=== PATIENT | male | born 1970 ===

== ENCOUNTER 2017-05-01 16:00 | Emergency (ER) | payer BC ==
[2017-05-01 16:19] VITALS: BP 126/93
--- NOTE | 2017-05-01 16:47 | UC ---
UC General HPI - HPI Summary HPI Summary: Patient presents with an unremarkable past medical history. He presents today with 5 day onset complaints of generalized body aches, fatigue and malaise, persistent coughing. He states that he coughs so hard at times that he get nauseous, and almost vomits. He states that each day he is not getting better. He had to call into work today because he is still sick. He also reports toady he has had diarrhea. - History of Current Complaint Chief Complaint: UCRespiratory Stated Complaint: COUGH,CONGESTION,CHILLS Time Seen by Provider: 05/01/17 16:31 Hx Obtained From: Patient Onset/Duration: Sudden Onset Onset Severity: Moderate Current Severity: Moderate Pain Intensity: 7 Associated Signs & Symptoms: Positive: Cough, Fever, Nausea - Allergy/Home Medications Allergies/Adverse Reactions: Allergies Allergy/AdvReac Type Severity Reaction Status Date / Time No Known Allergies Allergy Verified 05/01/17 16:19 PMH/Surg Hx/FS Hx/Imm Hx Previously Healthy: Yes - Surgical History Surgical History: None - Family History Known Family History: Positive: None - Social History Occupation: Employed Full-time Lives: With Family Alcohol Use: None Substance Use Type: None Smoking Status (MU): Heavy Every Day Tobacco Smoker Amount Used/How Often: 1/2 PPD Review of Systems Constitutional: Fever, Chills, Fatigue Skin: Negative Eyes: Negative Respiratory: Cough Cardiovascular: Negative Gastrointestinal: Negative Genitourinary: Negative Motor: Negative Neurovascular: Negative Musculoskeletal: Negative Neurological: Negative Psychological: Negative Is Patient Immunocompromised?: No All Other Systems Reviewed And Are Negative: Yes Physical Exam Triage Information Reviewed: Yes Appearance: Ill-Appearing Vital Signs: Initial Vital Signs Temp 99.0 F 05/01/17 16:16 Pulse 77 05/01/17 16:16 Resp 12 05/01/17 16:16 BP 126/93 05/01/17 16:16 Pulse Ox 99 05/01/17 16:16 Vital Signs Reviewed: Yes Eye Exam: Normal ENT Exam: Normal Neck exam: Normal Neck: Positive: 1 Respiratory Exam: Normal Respiratory: Positive: No respiratory distress, No accessory muscle use, Decreased breath sounds Cardiovascular Exam: Normal Abdominal Exam: Normal Musculoskeletal Exam: Normal Neurological Exam: Normal Psychological Exam: Normal Skin Exam: Normal Course/Dx - Course Course Of Treatment: Patient presents with an unremarkable past medical history. He presents with 5 day onset lingerling symptoms which include general fatigue, malaise, body aches and coughing. A chest xray was obtained read by the radiologist and reviwed by myself, discussed with the patient as negative. Influenza swab also negative. He presents with influnza like illness with secondary bronchitis. He was treated with Augmentin, prednisone, and albuterol. I also took him out or work for two more days and if he does not improve as anticipated I recommend he follow up with his PCP or return to the clinic for furhter evaluation. - Differential Dx - Multi-Symptom Differential Diagnoses: Other - bronchitis Provider Diagnoses: bronchitis Discharge - Discharge Plan Condition: Stable Disposition: HOME Prescriptions: Albuterol HFA INHALER* [Ventolin HFA Inhaler*] 1 puff INH Q4H PRN #1 mdi PRN Reason: Cough Amoxicillin/Clavulanate TAB* [Augmentin TAB 500 mg*] 500 mg PO BID #20 tab predniSONE TAB* [Deltasone TAB*] 20 mg PO BID #10 tab Patient Education Materials: Acute Bronchitis (ED) Forms: *Work Release Referrals: No Primary Care Phys,NOPCP [Primary Care Provider] -
--- NOTE | 2017-05-01 16:53 | RAD ---
INDICATION: Cough for 5 days. COMPARISON: There are no prior studies available for comparison. TECHNIQUE: Dual-energy PA and lateral views of the chest were obtained. FINDINGS: The heart is within normal limits in size. Mediastinal and hilar contours appear within normal limits. The lungs are hyperinflated and clear. No pleural effusion is seen. IMPRESSION: NO EVIDENCE FOR ACUTE FINDING.
== END 2017-05-01 17:33 | disposition home or self-care (01) ==
LOC: UCEAST 16:00
DX: J40 Bronchitis, not specified as acute or chronic (principal); F17.210 Nicotine dependence, cigarettes, uncomplicated
CPT/HCPCS: 71046; 87502; 99212; G0463

== ENCOUNTER 2019-03-31 15:27 | Emergency (ER) | payer SELFPAY ==
[2019-03-31 15:37] VITALS: BP 134/90
[2019-03-31] MEDS ORDERED: Ondansetron ODT TAB* 4 MG PO ONE (15:58)
--- NOTE | 2019-03-31 16:08 | UC ---
General HPI - HPI Summary HPI Summary: 49 year old male presents with onset of general malaise, nasal congestion, sinus pressure, chest congestion, cough, nausea, and vomiting yesterday. States he had 1 episode of vomiting yesterday and 2 today. Last episode was approximately 2 hours ago. Episodes seem associated with coughing fits although he states this morning he woke up feeling nauseous and vomited without coughing. No measured fever but reports chills. He did not receive his flu shot this season. Denies headache, ear pain, sore throat, dizziness, lightheadedness , chest pain, palpitations, SOB, abdominal pain, or diarrhea. - History of Current Complaint Chief Complaint: UCRespiratory Stated Complaint: VOMITING Time Seen by Provider: 03/31/19 15:28 Hx Obtained From: Patient Pain Intensity: 2 - Allergy/Home Medications Allergies/Adverse Reactions: Allergies Allergy/AdvReac Type Severity Reaction Status Date / Time No Known Allergies Allergy Verified 03/31/19 15:35 PMH/Surg Hx/FS Hx/Imm Hx Cardiovascular History: Hypertension - Surgical History Surgical History: None - Family History Known Family History: Positive: Non-Contributory - Social History Occupation: Employed Full-time Lives: With Family Alcohol Use: None Substance Use Type: Marijuana Smoking Status (MU): Heavy Every Day Tobacco Smoker Amount Used/How Often: 1/2 PPD Household Exposure Type: Cigarettes Review of Systems All Other Systems Reviewed And Are Negative: Yes Constitutional: Positive: Chills Eyes: Negative: Drainage, Eye Redness ENT: Positive: Nasal Discharge, Sinus Congestion, Sinus Pain/Tenderness. Negative: Sore Throat, Ear Ache Respiratory: Positive: Cough. Negative: Shortness Of Breath Cardiovascular: Negative: Palpitations, Chest Pain Gastrointestinal: Positive: Vomiting, Nausea. Negative: Abdominal Pain, Diarrhea Genitourinary: Positive: Negative Musculoskeletal: Positive: Negative Neurological: Positive: Negative Is Patient Immunocompromised?: No Physical Exam - Summary Physical Exam Summary: GENERAL APPEARANCE: Well developed, well nourished, alert and cooperative adult male who appears to be in no acute distress. EYES: Conjunctiva clear. No drainage. EARS: External auditory canals and tympanic membranes clear, hearing grossly intact. NOSE: Moderate nasal congestion. No nasal discharge. THROAT: Pharynx normal. No tonsilar inflammation, swelling, exudate, or lesions. Uvula midline. Teeth and gingiva in poor general condition. NECK: Neck supple, non-tender without lymphadenopathy. CARDIAC: Normal S1 and S2. No S3, S4 or murmurs. Rhythm is regular. There is no peripheral edema, cyanosis or pallor. Extremities are warm and well perfused. Capillary refill is less than 2 seconds. Peripheral pulses intact. LUNGS: Clear to auscultation without rales, rhonchi, wheezing or diminished breath sounds. ABDOMEN: Positive bowel sounds. Soft, nondistended, nontender. No guarding or rebound. No masses or hepatosplenomegally. MUSKULOSKELETAL: ROM intact to all extremities. No joint erythema or tenderness. Normal muscular development. Normal gait. SKIN: Skin normal color, texture and turgor with no lesions or eruptions. Triage Information Reviewed: Yes Vital Signs: Initial Vital Signs Temp 96.6 F 03/31/19 15:30 Pulse 94 03/31/19 15:30 Resp 18 03/31/19 15:30 BP 134/90 03/31/19 15:30 Pulse Ox 97 03/31/19 15:30 Vital Signs Reviewed: Yes Course/Dx - Course Course Of Treatment: 49 year old male presents with onset of general malaise, nasal congestion, sinus pressure, chest congestion, cough, nausea, and vomiting yesterday. States he had 1 episode of vomiting yesterday and 2 today. Last episode was approximately 2 hours ago. Episodes seem associated with coughing fits although he states this morning he woke up feeling nauseous and vomited without coughing. No measured fever but reports chills. He did not receive his flu shot this season. Denies headache, ear pain, sore throat, dizziness, lightheadedness , chest pain, palpitations, SOB, abdominal pain, or diarrhea. Afebrile. Hypertensive otherwise VSS. Patient had moderate nasal congestion, normal TMs, normal pharynx without tonsilar swelling or edema, no cervical lympnadenopathy, clear bilateral breath sounds, soft, nondistended, nontender abdomen, and otherwise unremarkable exam. Patient was given ondansetron 8 mg for the nausea, had good relief of symptoms, and was able to tolerate oral fluids without further episodes of vomiting. Rapid flu test was negative. Results reviewed with the patient. Recommending symptomatic treatment for a viral syndrome including OTC decongestant, Tessalon Perles for cough, and ondansetron for N/V. He is to return here or follow up with PCP in 5-7 days if no improvement in symptoms. Anticipatory guidance and warning symptoms reviewed with patient. Verbalizes understanding and agrees with POC. - Differential Dx - Multi-Symptom Differential Diagnoses: Other - Influenza, URI, gastroenteritis - Diagnoses Provider Diagnosis: Viral syndrome, Nausea & vomiting Discharge ED - Sign-Out/Discharge Documenting (check all that apply): Patient Departure All imaging exams completed and their final reports reviewed: No Studies - Discharge Plan Condition: Stable Disposition: HOME Prescriptions: Benzonatate CAP* [Tessalon 100 MG CAP*] 100 mg PO TID PRN #21 cap PRN Reason: Cough Ondansetron [Ondansetron Odt] 4 mg PO Q8HR PRN #6 tab.rapdis PRN Reason: Nausea/Vomiting Patient Education Materials: Acute Nausea and Vomiting (ED), Viral Syndrome (ED ) Forms: *Work Release Referrals: No Primary Care Phys,NOPCP [Primary Care Provider] - [facility] [place] [facility] REFERRAL [Outside] (Call to help establish with a primary care provider.) Additional Instructions: The flu test performed in the clinic today was negative. Your history and exam are consistent with a viral upper respiratory infection. Viral infections do not respond to antibiotics and are limited to the treatment of symptoms. Viral infections typically run their course in 7-10 days. Get plenty of rest. Use an over the counter decongestant such as Sudafed for the congestion. Take Tessalon Perles 1 cap every 8 hours as needed for cough. Take over the counter acetaminophen (Tylenol) or ibuprofen (Advil, Motrin) according to directions as needed for pain or fever. Take ondansetron 4 mg 1 tab every 8 hours as needed for nausea or vomiting. You received a dose of this medication in the clinic at 4:15 pm. Drink plenty of fluids. Try to drink small amounts frequently to avoid filling your stomach to full which can cause vomiting. If you are still having vomiting, start with a clear liquid diet including soup broths, Jello, popsicles, and isaura-marcin with carbonation stirred out of it. You may then advance to a bland diet including saltine crackers, toast, bananas , rice, and applesauce. Then return to a normal diet as tolerated. Return here or with a primary care provider in 5-7 days if symptoms persist. I have provided you with the contact information for the [facility] physician referral service if you need assistance with establishing with a provider. Seek immediate medical attention in the emergency room if you have fever greater than 100.5 F despite taking acetaminophen or ibuprofen, have chest pain , difficulty breathing, severe abdominal pain, persistent vomiting, blood in your vomit or stool, or have any worsening of symptoms. - Billing Disposition and Condition Condition: STABLE Disposition: Home
[2019-03-31 16:21] LABS: Influenza A Molecular NEGATIVE (Negative); Influenza B Molecular NEGATIVE (Negative)
== END 2019-03-31 16:58 | disposition home or self-care (01) ==
LOC: UCEAST 15:27
DX: B34.9 Viral infection, unspecified (principal); R11.2 Nausea with vomiting, unspecified; I10 Essential (primary) hypertension; R53.81 Other malaise; R09.81 Nasal congestion; R05 Cough; J34.89 Other specified disorders of nose and nasal sinuses; R09.89 Other specified symptoms and signs involving the circulatory and respiratory systems; F17.210 Nicotine dependence, cigarettes, uncomplicated
CPT/HCPCS: 99212; A9270-GY; G0463